=== PATIENT | female | born 1980 | race Caucasian/White ===

== ENCOUNTER → 2025-05-03 | Outpatient (CLI) | payer MEDICAID, SELFPAY ==
--- NOTE | 2025-05-03 08:30 | XR_ITS ---
Examination: Transvaginal ultrasound of the pelvis, complete Technique: Transvaginal sonographic images pelvis performed using jackson scale imaging Exam date and time: May 03, 2025 0931 hours INDICATIONS: Pelvic pain and heavy vaginal bleeding several months. FINDINGS: Uterus 7.6 cm endometrial stripe 0.8 cm No uterine mass or intrauterine gestation Right ovary 3.8 cm, 2.1 x 1.4 x 2.4 cm simple cyst Left ovary 2.6 cm arterial flow IMPRESSION: Right ovarian simple cyst 2.1 x 1.4 x 2.4 cm
== END | disposition home or self-care (01) ==
LOC: CDIM 08:57
DX: N83.291 Other ovarian cyst, right side (principal)
CPT/HCPCS: 76830